=== PATIENT | female | born 2000 ===

== ENCOUNTER 2021-12-14 13:15 | Inpatient (IN) | payer OTHER ==
[~2021-12-14] VITALS: Ht 160 cm; Wt 65.3 kg
[2022-01-04] MEDS ORDERED: PRENATAL TABLE1 EAC1 PO (07:02)
== END 2022-01-06 12:17 | disposition home or self-care (01) | DRG 807 ==
LOC: LDR 01-04 05:33 → OB/GYN 01-04 19:26
PROVIDERS: ADMIT Obstetrics & Gynecology; ATTEND Obstetrics & Gynecology
PROC: 10E0XZZ Delivery of Products of Conception, External Approach (ICD-10-PCS; principal; 2022-01-04)
PROC: 0HQ9XZZ Repair Perineum Skin, External Approach (ICD-10-PCS; 2022-01-04)
PROC: 4A1HXCZ Monitoring of Products of Conception, Cardiac Rate, External Approach (ICD-10-PCS; 2022-01-04)
DX: O70.0 First degree perineal laceration during delivery (principal); Z37.0 Single live birth; Z3A.38 38 weeks gestation of pregnancy; Z20.822 Contact with and (suspected) exposure to COVID-19